=== PATIENT | female | born 1995 | race Caucasian/White ===

== ENCOUNTER 2016-10-27 19:01 | Emergency (ER) | payer BC ==
[2016-10-27] MEDS ORDERED: Sodium Chloride 0.9% 2.5 ML Syringe FLUSH PRN (19:16)
[2016-10-27] MEDS ORDERED: Sodium Chloride 0.9% 10 ML Syringe FLUSH PRN (19:16)
--- NOTE | 2016-10-27 19:17 | EDM.PDOC ---
ED HPI GENERAL MEDICAL PROBLEM - General Chief Complaint: Fever Stated Complaint: FEVER/ 25 WEEKS Time Seen by Provider: 10/27/16 19:12 Source of Information: Reports: Patient History Limitations: Reports: No Limitations - History of Present Illness INITIAL COMMENTS - FREE TEXT/NARRATIVE: HISTORY AND PHYSICAL: []20-year-old female presenting with a fever since noon today History of Present Illness: []She does 25 weeks She has taken Tylenol at 4:00 PM Review of Systems: As per history of present illness and below otherwise all systems reviewed and negative. Past medical history: As per history of present illness and as reviewed below otherwise noncontributory. Surgical history: As per history of present illness and as reviewed below otherwise noncontributory. Social history: No reported history of drug or alcohol abuse. Family history: As per history of present illness and as reviewed below otherwise noncontributory. Physical exam: Alert and oriented female speaking in full sentences with no shortness of breath. She looks nontoxic HEENT: Atraumatic, normocehpalic, pupils reactive, negative for conjunctival pallor or scleral icterus, mucous membranes moist, throat clear, neck supple, nontender, trachea midline. Lungs: Clear to auscultation, breath sounds equal bilaterally, chest non tender. Heart: S1S2, regular, negative for clicks, rubs, or JVD. Abdomen: Soft, nondistended, nontender. Negative for masses or hepatossplenmegaly. Negative for costovertebral tenderness. Pelvis: Stable nontender. Genitourinary: Deferred. Rectal: Deferred Extremities: Atraumatic, negative for cords or calf pain. Neurovascular unremarkable. Neuro: Awake, alert, oriented. Cranial nerves II through XII unremarkable. Cerebellum unremarkable. Motor and sensory unremarkable throughout. Exam nonfocal. heart tones 141. Diagnostics: [CBC UA urine culture] negative for infection Therapeutics: [] Impression: [Fever resolved] Plan: [Discharged to home Tylenol as needed for discomfort See her SUPERVISOR [employer] tomorrow Any worsening of symptoms please return for re-evaluation] Definitive disposition and diagnosis as appropriate pending reevaluation and review of above. 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 [No Known Home Meds] 10/27/16 [History] Past Medical History - Past Health History Medical/Surgical History: Denies Medical/Surgical History HEENT History: Reports: None Cardiovascular History: Reports: None Respiratory History: Reports: None Gastrointestinal History: Reports: None Genitourinary History: Reports: None SUPERVISOR [employer] History: Reports: Musculoskeletal History: Reports: None Neurological History: Reports: None Psychiatric History: Reports: None Endocrine/Metabolic History: Reports: None Hematologic History: Reports: None Dermatologic History: Reports: None - Infectious Disease History Infectious Disease History: Reports: None Social & Family History - Family History Family Medical History: Noncontributory - Tobacco Use Smoking Status *Q: Never Smoker - Recreational Drug Use Recreational Drug Use: No ED ROS ENT - Review of Systems Review Of Systems: ROS reveals no pertinent complaints other than HPI. ED EXAM, ENT - Physical Exam Exam: See Below (See dictation) Course - Vital Signs Last Recorded V/S: Last Vital Signs Temp 36.2 C 10/27/16 19:05 Pulse 97 10/27/16 19:05 Resp 14 10/27/16 19:05 BP 125/85 10/27/16 19:05 Pulse Ox 97 10/27/16 19:05 - Orders/Labs/Meds Orders: Active Orders 24 hr Category Date Time Status COMPREHENSIVE METABOLIC PN,CMP [CHEM] Stat Lab 10/27/16 19:30 Received CULTURE URINE [RM] Stat Lab 10/27/16 19:30 Received Sodium Chloride 0.9% [Saline Flush] Med 10/27/16 19:16 Active 10 ml FLUSH ASDIRECTED PRN Sodium Chloride 0.9% [Saline Flush] Med 10/27/16 19:16 Active 2.5 ml FLUSH ASDIRECTED PRN Saline Lock Insert [OM.PC] Stat Oth 10/27/16 19:16 Ordered Medication Orders Sodium Chloride (Saline Flush) 10 ml FLUSH ASDIRECTED PRN PRN Reason: Keep Vein Open Sodium Chloride (Saline Flush) 2.5 ml FLUSH ASDIRECTED PRN PRN Reason: Keep Vein Open Labs: Laboratory Tests 10/27/16 10/27/16 Range/Units 19:30 19:30 WBC 14.58 H (4.0-11.0) K/uL RBC 4.22 L (4.30-5.90) M/uL Hgb 12.7 (12.0-16.0) g/dL Hct 37.3 (36.0-46.0) % MCV 88.4 (80.0-98.0) fL MCH 30.1 (27.0-32.0) pg MCHC 34.0 (31.0-37.0) g/dL RDW Std Deviation 40.5 (28.0-62.0) fl RDW Coeff of Jl 13 (11.0-15.0) % Plt Count 216 (150-400) K/uL MPV 9.90 (7.40-12.00) fL Add Manual Diff YES Neutrophils % (Manual) 82 H (48.0-80.0) % Lymphocytes % (Manual) 14 L (16.0-40.0) % Monocytes % (Manual) 3 (0.0-15.0) % Eosinophils % (Manual) 1 (0.0-7.0) % Absolute Seg Neuts 12.0 Lymphocytes # (Manual) 2.0 Monocytes # (Manual) 0.4 Eosinophils # (Manual) 0.1 Urine Color YELLOW Urine Appearance CLEAR Urine pH 7.0 (5.0-8.0) Ur Specific [place] 1.015 (1.001-1.035) Urine Protein NEGATIVE (NEGATIVE) mg/dL Urine Glucose (UA) NEGATIVE (NEGATIVE) mg/dL Urine Ketones NEGATIVE (NEGATIVE) mg/dL Urine Occult Blood NEGATIVE (NEGATIVE) Urine Nitrite NEGATIVE (NEGATIVE) Urine Bilirubin NEGATIVE (NEGATIVE) Urine Urobilinogen 0.2 (<2.0) EU/dL Ur Leukocyte Esterase SMALL (NEGATIVE) Urine RBC 0-2 (0-2/HPF) Urine WBC 3-5 (0-5/HPF) Ur Epithelial Cells MODERATE (NONE-FEW) Urine Bacteria FEW (NEGATIVE) Meds: Medications Generic Name Dose Route Start Last Admin Trade Name Freq PRN Reason Stop Dose Admin Sodium Chloride 10 ml 10/27/16 19:16 Saline Flush FLUSH ASDIRECTED PRN Keep Vein Open Sodium Chloride 2.5 ml 10/27/16 19:16 Saline Flush FLUSH ASDIRECTED PRN Keep Vein Open Departure - Departure Time of Disposition: 20:16 Disposition: Home, Self-Care 01 Condition: Good Clinical Impression: Fever Qualifiers: Fever type: unspecified Qualified Code(s): R50.9 - Fever, unspecified - Discharge Information Referrals: Jillian Kirby MD [Primary Care Provider] - Forms: ED Department Discharge - My Orders Last 24 Hours: My Active Orders 10/27/16 19:16 Sodium Chloride 0.9% [Saline Flush] 10 ml FLUSH ASDIRECTED PRN Sodium Chloride 0.9% [Saline Flush] 2.5 ml FLUSH ASDIRECTED PRN Saline Lock Insert [OM.PC] Stat 10/27/16 19:30 COMPREHENSIVE METABOLIC PN,CMP [CHEM] Stat CULTURE URINE [RM] Stat - Assessment/Plan Last 24 Hours: My Active Orders 10/27/16 19:16 Sodium Chloride 0.9% [Saline Flush] 10 ml FLUSH ASDIRECTED PRN Sodium Chloride 0.9% [Saline Flush] 2.5 ml FLUSH ASDIRECTED PRN Saline Lock Insert [OM.PC] Stat 10/27/16 19:30 COMPREHENSIVE METABOLIC PN,CMP [CHEM] Stat CULTURE URINE [RM] Stat
[2016-10-27 20:23] LABS: CHLORIDE,CL 110 mmol/L (98-110); SODIUM,NA 138 mmol/L (136-146)
[2016-10-27 20:27] VITALS: BP 119/69
== END 2016-10-27 20:23 | disposition home or self-care (01) ==
LOC: MW.ED 19:01
DX: O99.89 Other specified diseases and conditions complicating pregnancy, childbirth and the puerperium (principal); R50.9 Fever, unspecified; Z3A.25 25 weeks gestation of pregnancy
CPT/HCPCS: 36415; 80053; 81001; 85025; 87086; 99283

== ENCOUNTER 2017-02-01 00:15 | Inpatient (IN) | payer BC ==
[2017-02-01] MEDS ORDERED: Lidocaine 1% 50 ML MDV INJECT PRN (00:26)
[2017-02-01] MEDS ORDERED: Sodium Chloride 0.9% 10 ML Syringe FLUSH PRN (00:26)
[2017-02-01] MEDS ORDERED: Misoprostol 200 MCG Tab PO PRN (00:26)
[2017-02-01] MEDS ORDERED: Terbutaline 1 MG/ML SDV SUBCUT PRN (00:26)
[2017-02-01] MEDS ORDERED: Methylergonovine 0.2 MG/1 ML Amp IM PRN (00:26)
[2017-02-01] MEDS ORDERED: Carboprost Tromethamine 250 MCG/1 ML Amp IM PRN (00:26)
[2017-02-01] MEDS ORDERED: Water For Irrigation,Sterile 1,000 ML Container IRR PRN (00:26)
[2017-02-01] MEDS ORDERED: Sodium Chloride 0.9% 2.5 ML Syringe FLUSH PRN (00:26)
[2017-02-01] MEDS ORDERED: Nalbuphine 10 MG/1 ML Vial IVPUSH PRN (00:26)
[2017-02-01] MEDS ORDERED: Oxytocin/0.9 % Sodium Chloride 30 UNIT/500 ML BAG IV SCH ×2 (00:30)
[2017-02-01] MEDS ORDERED: Misoprostol 25 MCG (1/4 of 100 MCG) Tab VAG SCH (01:00)
[2017-02-01] MEDS ORDERED: Misoprostol 25 MCG (1/4 of 100 MCG) Tab VAG PRN (05:00)
[2017-02-01] MEDS: Lactated Ringers 1,000 ML IV SCH ×3 (09:52→22:00)
[2017-02-01] MEDS: Butorphanol 1 MG/ML SDV IVPUSH PRN ×6 (11:23→20:07)
[2017-02-01] MEDS ORDERED: Ropivacaine 0.2% 2 MG/ML 20 ML SDV ONE (22:56)
[2017-02-01] MEDS ORDERED: Ropivacaine 100 ML ONE (22:56)
[2017-02-01] MEDS ORDERED: fentaNYL 100 MCG/2 ML SDV ONE (22:56)
--- NOTE | 2017-02-01 23:32 | PCM.PREANE ---
Preanesthetic Assessment - Procedure Proposed Procedure: labor epidural - Anesthesia/Transfusion/Family Hx Anesthesia History: No Prior Anesthesia Family History of Anesthesia Reaction: No Transfusion History: No Prior Transfusion(s) - Review of Systems Other: Reports: None - Physical Assessment Height: 5 ft 3 in Weight: 99.79 kg ASA Class: 2 Mental Status: Alert & Oriented x3 Airway Class: Mallampati = 1 Dentition: Reports: Normal Dentition ROM/Head Extension: Full - Lab Values: Laboratory Last Values WBC 11.02 K/uL (4.0-11.0) H 02/01/17 00:43 RBC 3.93 M/uL (4.30-5.90) L 02/01/17 00:43 Hgb 11.1 g/dL (12.0-16.0) L 02/01/17 00:43 Hct 33.3 % (36.0-46.0) L 02/01/17 00:43 MCV 84.7 fL (80.0-98.0) 02/01/17 00:43 MCH 28.2 pg (27.0-32.0) 02/01/17 00:43 MCHC 33.3 g/dL (31.0-37.0) 02/01/17 00:43 RDW Std Deviation 40.9 fl (28.0-62.0) 02/01/17 00:43 RDW Coeff of Jl 14 % (11.0-15.0) 02/01/17 00:43 Plt Count 135 K/uL (150-400) L 02/01/17 00:43 MPV 10.60 fL (7.40-12.00) 02/01/17 00:43 Blood Type A POSITIVE 02/01/17 00:43 Antibody Screen NEGATIVE 02/01/17 00:43 - Allergies Allergies/Adverse Reactions: Allergies Allergy/AdvReac Type Severity Reaction Status Date / Time No Known Allergies Allergy Verified 10/27/16 19:04 - Blood Blood Available: Yes Product(s) Available: PRBC - Acknowledgements Anesthesia Type Planned: Epidural Pt an Appropriate Candidate for the Planned Anesthesia: Yes Alternatives and Risks of Anesthesia Discussed w Pt/Guardian: Yes Pt/Guardian Understands and Agrees with Anesthesia Plan: Yes PreAnesthesia Questionnaire - Past Health History Medical/Surgical History: Denies Medical/Surgical History HEENT History: Reports: None Cardiovascular History: Reports: None Respiratory History: Reports: None Gastrointestinal History: Reports: None Genitourinary History: Reports: 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 [No Known Home Meds] 10/27/16 [History] - CURRENT (IN HOUSE) MEDS Current Meds: Current Medications Butorphanol Tartrate (Stadol) 1 mg IVPUSH Q1H PRN PRN Reason: Pain Last Admin: 02/01/17 16:41 Dose: 1 mg Butorphanol Tartrate (Stadol) 1 mg IVPUSH Q1H PRN PRN Reason: Pain (severe 7-10) Last Admin: 02/01/17 20:07 Dose: 1 mg Carboprost Tromethamine (Hemabate Ds) 250 mcg IM ASDIRECTED PRN PRN Reason: Post Hemorrhage Lactated Ringer's (Ringers, Lactated) 1,000 mls @ 150 mls/hr IV ASDIRECTED GLORIA Last Admin: 02/01/17 10:49 Dose: 150 mls/hr Oxytocin/Sodium Chloride (Oxytocin 30 Unit/500 Ml-Ns) 30 unit in 500 mls @ 250 mls/hr IV TITRATE GLORIA Oxytocin/Sodium Chloride (Oxytocin 30 Unit/500 Ml-Ns) 30 unit in 500 mls @ 2 mls/hr IV TITRATE GLORIA; 2 MUNITS/MIN PRN Reason: Protocol Last Titration: 02/01/17 20:42 Dose: 6 munits/min, 6 mls/hr Lidocaine HCl (Xylocaine 1%) 50 ml INJECT .ONCE PRN PRN Reason: Laceration repair Methylergonovine Maleate (Methergine) 0.2 mg IM ASDIRECTED PRN PRN Reason: Post Hemorrhage Misoprostol (Cytotec) 200 mcg PO .ONCE PRN PRN Reason: Post Hemorrhage Misoprostol (Cytotec) 25 mcg VAG .ONCE GLORIA Last Admin: 02/01/17 01:05 Dose: 25 mcg Misoprostol (Cytotec) 25 mcg VAG Q4H PRN PRN Reason: Cervical Ripening Last Admin: 02/01/17 05:06 Dose: 25 mcg Nalbuphine HCl (Nubain) 10 mg IVPUSH Q1H PRN PRN Reason: Pain (severe 7-10) Sodium Chloride (Saline Flush) 10 ml FLUSH ASDIRECTED PRN PRN Reason: Keep Vein Open Sodium Chloride (Saline Flush) 2.5 ml FLUSH ASDIRECTED PRN PRN Reason: Keep Vein Open Sterile Water (Sterile Water For Irrigation) 1,000 ml IRR ASDIRECTED PRN PRN Reason: delivery Terbutaline Sulfate (Brethine) 0.25 mg SUBCUT ASDIRECTED PRN PRN Reason: Tacysystole Discontinued Medications Fentanyl (Sublimaze) Confirm Administered Dose 200 mcg .ROUTE .STK-MED ONE Stop: 02/01/17 22:57 Ropivacaine (Naropin 0.2%) Confirm Administered Dose 100 mls @ as directed .ROUTE .STK-MED ONE Stop: 02/01/17 22:57 Ropivacaine (Naropin 0.2%) Confirm Administered Dose 20 ml .ROUTE .STK-MED ONE Stop: 02/01/17 22:57
[2017-02-02] MEDS: Lactated Ringers 1,000 ML IV SCH ×3 (04:47→20:06)
[2017-02-02] MEDS ORDERED: Acetaminophen 500 MG Tab PO ONE (06:46)
[2017-02-02] MEDS ORDERED: Ampicillin 2 GM in Sodium Chloride 0.9% 50 ML IV SCH (07:00)
[2017-02-02] MEDS ORDERED: fentaNYL 100 MCG/2 ML SDV ONE ×3 (09:33→11:19)
[2017-02-02] MEDS ORDERED: Bupivacaine 0.5% 10 ML SDV ONE (09:33)
[2017-02-02] MEDS ORDERED: Oxytocin/0.9 % Sodium Chloride 30 UNIT/500 ML BAG ONE (09:40)
[2017-02-02] MEDS ORDERED: Clindamycin Phosphate in D5W 50 ML IV ONE (09:41)
[2017-02-02] MEDS ORDERED: Morphine PF 10 MG/10 ML SDV ONE (10:07)
[2017-02-02] MEDS ORDERED: Ondansetron 4 MG/2 ML SDV ONE (10:30)
[2017-02-02] MEDS ORDERED: Methylergonovine 0.2 MG/1 ML Amp ONE (10:35)
[2017-02-02] MEDS ORDERED: Nalbuphine 10 MG/1 ML Vial IVPUSH PRN (10:43)
[2017-02-02] MEDS ORDERED: Naloxone 0.4 MG/ML Syringe IVPUSH PRN (10:43)
[2017-02-02] MEDS ORDERED: Acetaminophen/oxyCODONE 325-5 MG Tab PO PRN ×5 (10:43→14:18)
--- NOTE | 2017-02-02 11:57 | PCM.OPNOTE ---
- General Post-Op/Procedure Note Date of Surgery/Procedure: 02/02/17 Operative Procedure(s): Primary Lower transverse Cesearean section Findings: Live male delivered @ 1029am weight 3580g , 8/9 , 3VC , Vertex position Uterus closed in 2 layers peritoneum closed , rectus approximated Skin closed with 4.0 monocryl Pre Op Diagnosis: 21 @ 39w2d with Failed IOL. Cat 2 FHT. chorioamnionitis Post-Op Diagnosis: Same Anesthesia Technique: Epidural Primary Surgeon: Jillian Kirby Anesthesia Provider: Candido Krause Pathology: Placenta Fluid Replacement, Intraop: 1,700 Output, Urine Amount: 255 EBL in mLs: 800 Complications: None Condition: Good Free Text/Narrative:: Intake & Output 02/01/17 02/02/17 02/02/17 22:59 06:59 14:59 Output Total 1600 Balance -1600
[2017-02-02] MEDS ORDERED: Lactated Ringers 1,000 ML IV SCH (12:00)
[2017-02-02] MEDS ORDERED: Ondansetron 4 MG/2 ML SDV IV PRN (12:00)
[2017-02-02] MEDS ORDERED: Lanolin 100% Cream 7 GM Tube TOP PRN (12:00)
[2017-02-02] MEDS ORDERED: Bisacodyl 10 MG Supp RECTAL PRN (12:00)
[2017-02-02] MEDS ORDERED: diphenhydrAMINE 50 MG/ML SDV IVPUSH PRN (12:00)
[2017-02-02] MEDS ORDERED: Ketorolac 30 MG/ML SDV ONE (12:09)
[2017-02-02] MEDS: Ketorolac 30 MG/ML SDV IVPUSH SCH ×3 (12:12→23:49)
--- NOTE | 2017-02-02 12:13 | PCM.POSTAN ---
POST ANESTHESIA ASSESSMENT - MENTAL STATUS Mental Status: Alert, Oriented - VITAL SIGNS Pulse Rate: 88 SaO2: 97 Resp Rate: 10 Blood Pressure: 102/58 - RESPIRATORY Respiratory Status: Respiratory Rate WNL, Airway Patent, O2 Saturation Stable - CARDIOVASCULAR CV Status: Pulse Rate WNL, Blood Pressure Stable - GASTROINTESTINAL GI Status: No Symptoms - PAIN Pain Score: 0 - POST OP HYDRATION Hydration Status: Adequate & Stable
[2017-02-02] MEDS ORDERED: Ampicillin/Sulbactam Na 3 GM in Sodium Chloride 0.9% 100 ML IV SCH (12:15)
[2017-02-02] MEDS: Ampicillin/Sulbactam Na 3 GM in Sodium Chloride 0.9% 100 ML IV SCH ×2 (14:03→20:07)
[2017-02-02] MEDS: Nalbuphine 10 MG/1 ML Vial IVPUSH PRN (16:29)
[2017-02-02] MEDS: Docusate Sodium 100 MG Cap PO SCH (20:07)
[2017-02-03] MEDS: Nalbuphine 10 MG/1 ML Vial IVPUSH PRN (00:58)
[2017-02-03] MEDS: Ampicillin/Sulbactam Na 3 GM in Sodium Chloride 0.9% 100 ML IV SCH ×2 (02:03→07:54)
[2017-02-03] MEDS: Ketorolac 30 MG/ML SDV IVPUSH SCH ×2 (06:04→12:01)
[2017-02-03 06:14] LABS: CHLORIDE,CL 109 mmol/L (98-110); SODIUM,NA 139 mmol/L (136-146)
[2017-02-03] MEDS: Docusate Sodium 100 MG Cap PO SCH ×2 (07:59→20:00)
[2017-02-03] MEDS ORDERED: Acetaminophen/oxyCODONE 325-5 MG Tab PO PRN (10:46)
--- NOTE | 2017-02-03 15:34 | PCM48HPAN ---
Post Anesthesia Note - EVALUATION WITHIN 48HRS OF ANESTHETIC Vital Signs in Normal Range: Yes Patient Participated in Evaluation: Yes Respiratory Function Stable: Yes Airway Patent: Yes Cardiovascular Function Stable: Yes Hydration Status Stable: Yes Pain Control Satisfactory: Yes Nausea and Vomiting Control Satisfactory: Yes Mental Status Recovered: Yes
[2017-02-03] MEDS: Acetaminophen/oxyCODONE 325-5 MG Tab PO PRN ×2 (17:32→22:24)
[2017-02-03] MEDS: Ibuprofen 800 MG Tab PO PRN (17:32)
--- NOTE | 2017-02-03 19:58 | PCM.PNPP ---
- General Info Date of Service: 02/03/17 Admission Dx/Problem (Free Text): 21yo S/P Primary LTCS POD 1 Subjective Update: Patient seen at complains she is ambulating ,voiding and tolerating regular diet Functional Status: Reports: Pain Controlled, Tolerating Diet, Ambulating, Urinating - Review of Systems General: Reports: No Symptoms HEENT: Reports: No Symptoms Pulmonary: Reports: No Symptoms Cardiovascular: Reports: No Symptoms Gastrointestinal: Reports: No Symptoms Genitourinary: Reports: No Symptoms Musculoskeletal: Reports: No Symptoms Skin: Reports: No Symptoms Neurological: Reports: No Symptoms Psychiatric: Reports: No Symptoms - General Info Date of Service: 02/03/17 - Patient Data Vital Signs - Most Recent: Last Vital Signs Temp 36.6 C 02/03/17 16:25 Pulse 103 H 02/03/17 16:25 Resp 18 02/03/17 16:25 BP 116/59 L 02/03/17 16:25 Pulse Ox 99 02/03/17 16:25 Weight - Most Recent: 99.79 kg I&O - Last 24 Hours: Intake & Output 02/03/17 02/03/17 02/03/17 06:59 14:59 22:59 Intake Total 1170 Output Total 1075 550 Balance 95 -550 Lab Results - Last 24 Hours: Laboratory Results - last 24 hr 02/03/17 02/03/17 Range/Units 05:34 05:34 Hgb 8.4 L (12.0-16.0) g/dL Hct 25.9 L (36.0-46.0) % Sodium 139 (136-146) mmol/L Potassium 3.5 (3.5-5.1) mmol/L Chloride 109 (98-110) mmol/L Carbon Dioxide 24 (21-31) mmol/L BUN 5 L (6.0-23.0) mg/dL Creatinine 0.5 L (0.6-1.5) mg/dL Est Cr Clr Drug Dosing 144.76 mL/min Estimated GFR (MDRD) > 60.0 ml/min Glucose 70 (60-110) mg/dL Calcium 7.4 L (8.8-10.8) mg/dL Med Orders - Current: Current Medications Bisacodyl (Dulcolax) 10 mg RECTAL .ONCE PRN PRN Reason: Constipation Carboprost Tromethamine (Hemabate Ds) 250 mcg IM ASDIRECTED PRN PRN Reason: Post Hemorrhage Diphenhydramine HCl (Benadryl) 25 mg IVPUSH Q6H PRN PRN Reason: Itching or Nausea Docusate Sodium (Colace) 100 mg PO BID GLORIA Last Admin: 02/03/17 07:59 Dose: 100 mg Emollient Ointment (Lansinoh Hpa) 0 gm TOP ASDIRECTED PRN PRN Reason: Sore Nipples Lactated Ringer's (Ringers, Lactated) 1,000 mls @ 150 mls/hr IV ASDIRECTED GLORIA Last Admin: 02/02/17 20:06 Dose: 150 mls/hr Oxytocin/Sodium Chloride (Oxytocin 30 Unit/500 Ml-Ns) 30 unit in 500 mls @ 250 mls/hr IV TITRATE GLORIA Oxytocin/Sodium Chloride (Oxytocin 30 Unit/500 Ml-Ns) 30 unit in 500 mls @ 2 mls/hr IV TITRATE GLORIA; 2 MUNITS/MIN PRN Reason: Protocol Last Titration: 02/02/17 09:39 Dose: 0 munits/min, 0 mls/hr Lactated Ringer's (Ringers, Lactated) 1,000 mls @ 125 mls/hr IV ASDIRECTED [facility] Ibuprofen (Motrin) 800 mg PO Q8H PRN PRN Reason: mild pain or fever Last Admin: 02/03/17 17:32 Dose: 800 mg Lidocaine HCl (Xylocaine 1%) 50 ml INJECT .ONCE PRN PRN Reason: Laceration repair Methylergonovine Maleate (Methergine) 0.2 mg IM ASDIRECTED PRN PRN Reason: Post Hemorrhage Misoprostol (Cytotec) 200 mcg PO .ONCE PRN PRN Reason: Post Hemorrhage Ondansetron HCl (Zofran) 4 mg IV Q4H PRN PRN Reason: Nausea/Vomiting Oxycodone/Acetaminophen (Percocet 325-5 Mg) 1 tab PO Q4H PRN PRN Reason: Pain (moderate 4-6) Last Admin: 02/03/17 17:32 Dose: 1 tab Oxycodone/Acetaminophen (Percocet 325-5 Mg) 2 tab PO Q4H PRN PRN Reason: Pain (moderate 4-6) Sterile Water (Sterile Water For Irrigation) 1,000 ml IRR ASDIRECTED PRN PRN Reason: delivery Discontinued Medications Acetaminophen (Tylenol Extra Strength) 1,000 mg PO ONETIME ONE Stop: 02/02/17 06:47 Last Admin: 02/02/17 07:31 Dose: 1,000 mg Bupivacaine HCl (Sensorcaine-Mpf 0.5%) Confirm Administered Dose 20 ml .ROUTE .STK-MED ONE Stop: 02/02/17 09:34 Last Admin: 02/02/17 12:53 Dose: Not Given Butorphanol Tartrate (Stadol) 1 mg IVPUSH Q1H PRN PRN Reason: Pain Last Admin: 02/01/17 16:41 Dose: 1 mg Butorphanol Tartrate (Stadol) 1 mg IVPUSH Q1H PRN PRN Reason: Pain (severe 7-10) Last Admin: 02/01/17 20:07 Dose: 1 mg Fentanyl (Sublimaze) Confirm Administered Dose 200 mcg .ROUTE .STK-MED ONE Stop: 02/01/17 22:57 Last Admin: 02/02/17 12:53 Dose: Not Given Fentanyl (Sublimaze) Confirm Administered Dose 100 mcg .ROUTE .STK-MED ONE Stop: 02/02/17 09:34 Last Admin: 02/02/17 12:53 Dose: Not Given Fentanyl (Sublimaze) Confirm Administered Dose 100 mcg .ROUTE .STK-MED ONE Stop: 02/02/17 10:58 Fentanyl (Sublimaze) Confirm Administered Dose 100 mcg .ROUTE .STK-MED ONE Stop: 02/02/17 11:20 Ropivacaine (Naropin 0.2%) Confirm Administered Dose 100 mls @ as directed .ROUTE .STK-MED ONE Stop: 02/01/17 22:57 Last Admin: 02/02/17 12:55 Dose: Not Given Ampicillin Sodium 2 gm/ Sodium (Chloride) 50 mls @ 100 mls/hr IV Q6H GLORIA Last Admin: 02/02/17 07:33 Dose: 100 mls/hr Gentamicin Sulfate 100 mg/ (Sodium Chloride) 52.5 mls @ 100 mls/hr IV ONETIME ONE Stop: 02/02/17 07:18 Last Admin: 02/02/17 08:29 Dose: 100 mls/hr Gentamicin Sulfate 80 mg/ (Sodium Chloride) 52 mls @ 100 mls/hr IV Q8H [facility] Oxytocin/Sodium Chloride (Oxytocin 30 Unit/500 Ml-Ns) Confirm Administered Dose 30 unit in 500 mls @ as directed .ROUTE .STK-MED ONE Stop: 02/02/17 09:41 Last Admin: 02/02/17 13:06 Dose: Not Given Clindamycin Phosphate (Cleocin In D5w) Confirm Administered Dose 50 mls @ as directed IV .STK-MED ONE Stop: 02/02/17 09:42 Last Admin: 02/02/17 13:04 Dose: Not Given Ampicillin Sodium/Sulbactam (Sodium 3 gm/ Sodium Chloride) 100 mls @ 200 mls/ hr IV Q6H [facility] Last Admin: 02/02/17 13:03 Dose: Not Given Ampicillin Sodium/Sulbactam (Sodium 3 gm/ Sodium Chloride) 100 mls @ 200 mls/ hr IV Q6H [facility] Last Admin: 02/03/17 07:54 Dose: 200 mls/hr Ketorolac Tromethamine (Toradol) 30 mg IVPUSH Q6H [facility] Stop: 02/03/17 12:01 Last Admin: 02/03/17 12:01 Dose: 30 mg Ketorolac Tromethamine (Toradol) Confirm Administered Dose 30 mg .ROUTE .STK- MED ONE Stop: 02/02/17 12:10 Last Admin: 02/02/17 12:54 Dose: Not Given Methylergonovine Maleate (Methergine) Confirm Administered Dose 0.2 mg .ROUTE .STK-MED ONE Stop: 02/02/17 10:36 Misoprostol (Cytotec) 25 mcg VAG .ONCE GLORIA Last Admin: 02/01/17 01:05 Dose: 25 mcg Misoprostol (Cytotec) 25 mcg VAG Q4H PRN PRN Reason: Cervical Ripening Last Admin: 02/01/17 05:06 Dose: 25 mcg Morphine Sulfate (Duramorph Pf) Confirm Administered Dose 10 mg .ROUTE .STK-MED ONE Stop: 02/02/17 10:08 Nalbuphine HCl (Nubain) 10 mg IVPUSH Q1H PRN PRN Reason: Pain (severe 7-10) Nalbuphine HCl (Nubain) 2.5 mg IVPUSH Q3H PRN PRN Reason: Pruritis Stop: 02/03/17 10:44 Nalbuphine HCl (Nubain) 2.5 mg IVPUSH Q3H PRN PRN Reason: Pruritis Stop: 02/03/17 12:10 Last Admin: 02/03/17 00:58 Dose: 2.5 mg Naloxone HCl (Narcan) 0.1 mg IVPUSH ONETIME PRN PRN Reason: IF RR<6 WITH STIMULATION Stop: 02/03/17 10:44 Ondansetron HCl (Zofran) Confirm Administered Dose 4 mg .ROUTE .STK-MED ONE Stop: 02/02/17 10:31 Oxycodone/Acetaminophen (Percocet 325-5 Mg) 1 tab PO .Q4HR PRN PRN Reason: Breakthrough Pain Stop: 02/03/17 10:45 Oxycodone/Acetaminophen (Percocet 325-5 Mg) 1 tab PO Q4H PRN PRN Reason: Pain (moderate 4-6) Oxycodone/Acetaminophen (Percocet 325-5 Mg) 2 tab PO Q4H PRN PRN Reason: Pain (moderate 4-6) Oxycodone/Acetaminophen (Percocet 325-5 Mg) 1 tab PO .Q4HRS PRN PRN Reason: Breakthrough Pain Stop: 02/02/17 14:08 Oxycodone/Acetaminophen (Percocet 325-5 Mg) 1 tab PO .Q4HRS PRN PRN Reason: Breakthrough Pain Stop: 02/03/17 10:45 Ropivacaine (Naropin 0.2%) Confirm Administered Dose 20 ml .ROUTE .STK-MED ONE Stop: 02/01/17 22:57 Last Admin: 02/02/17 12:53 Dose: Not Given Sodium Chloride (Saline Flush) 10 ml FLUSH ASDIRECTED PRN PRN Reason: Keep Vein Open Sodium Chloride (Saline Flush) 2.5 ml FLUSH ASDIRECTED PRN PRN Reason: Keep Vein Open Terbutaline Sulfate (Brethine) 0.25 mg SUBCUT ASDIRECTED PRN PRN Reason: Tacysystole - Infant Interaction Support Person: - Recovery Exam Fundal Tone: Firm Fundal Level: 1 Fingerbreadths Below Umbilicus Fundal Placement: Midline Lochia Amount: Scant Lochia Color: Rubra/Red Perineum Description: Intact, Minimal Bruising/Swelling Episiotomy/Laceration: None Bladder Status: Indwelling Catheter in Place Urinary Elimination: Indwelling Catheter - Exam General: Alert, Oriented HEENT: Pupils Equal Lungs: Clear to Auscultation Cardiovascular: Regular Rate, Regular Rhythm GI/Abdominal Exam: Normal Bowel Sounds (Pfannestiel skin incision with steristrips in place c/d/i ) Extremities: Normal Inspection Psy/Mental Status: Alert - Problem List & Annotations (1) delivery delivered SNOMED Code(s): 663099139 Code(s): O82 - ENCOUNTER FOR DELIVERY WITHOUT INDICATION Status: Acute Current Visit: Yes - Problem List Review Problem List Initiated/Reviewed/Updated: Yes - My Orders Last 24 Hours: My Active Orders 02/02/17 21:00 Docusate Sodium [Colace] 100 mg PO BID 02/03/17 10:46 Acetaminophen/oxyCODONE [Percocet 325-5 MG] 1 tab PO Q4H PRN Acetaminophen/oxyCODONE [Percocet 325-5 MG] 2 tab PO Q4H PRN - Assessment Assessment:: 21 yo s/p Primary LTCS POD 1 ,stable , normal lochia - Plan Plan:: Pain control as needed encourage ambulation vitamins and Iron Routine care
--- NOTE | 2017-02-04 00:35 | OR ---
DATE OF PROCEDURE: 02/02/2017 SURGEON:GIOVANNY BLACK PREOPERATOVE DIAGNOSIS: A 21-year-old, G1, P0, at 39 weeks 2 days with failed induction of labor, category 2 heart tracing, chorioamnionitis. POSTOPERATIVE DIAGNOSIS: Status post primary for failed induction of labor, category 2 tracing and chorioamnionitis. ANESTHESIA: Epidural. IV FLUID: 1700. OUTPUT: 255. EBL: 800. PATHOLOGY: Placenta. FINDING: A live male delivered at 10:29 a.m. Weight was 3580 g. score of 8 and 9. Three-vessel cord noted. BRIEF HISTORY: She was a 21-year-old, G1, P0, at 39w1d ( d,24) based on maternal request. Cervix on admission was FT/L/P . The patient received 2 doses of Cytotec after which she became about 1 cm. A baca balloon was placed under traction. After this 5, then AROM performed 2, then she was ruptured.Pitocin was started with CRB in place. The patient was on Pitocin for about 12 hours and exam remained unchanged, and the patient had adequate contractions noted on the monitor. EFM showed occasional late decelerations. Patient also noted to have a temp 100.8 , she was placed on Amp and gentamicin. The patient was offered of section for maternal and well being. She was explained risk benefit and alternative, she was allowed to ask question and she then signed the consent. PROCEDURE: The patient was taken to the operating room,with epidural in place . She was prepared and draped in dorsal supine position with a leftward tilt. A Pfannenstiel skin incision was made with the scalpel and carried down to the fascia with the Bovie. The fascia was incised and extended laterally. The superior fascia was grasped with Michael clamps and from the rectus muscles superiorly., then inferiorly the rectus muscle was from the fascia. The rectus muscle was then in the midline to the level of the pubic symphysis. The abdomen was then entered in bluntly and the peritoneum was then stretched to expose the bladder reflection. An intraabdominal survey showed scant fluid. Bladder reflection was noted. The Dontae retractor was then placed in to expose the lower uterine segment. A bladder flap was created. An incision was then made in the lower uterine segment. The incision was extended upwards and downwards via manual traction. The fetus was in cephalic position. The head was brought to the incision, then fundal pressure applied. The head was delivered followed by the body . Delayed cord clamping was observed. The cord was clamped and cut and the infant was handed over to the awaiting english teacher. The placenta was then delivered. The uterus was then cleaned with laparotomy sponges. The uterus was sutured in 2 layers and hemostasis was noted afterwards. The gutters were cleaned. The retractor was then removed. The peritoneal was sutured. The rectus muscle was then closed with mattress stitch. The fascia was closed with 0 Vicryl in a continuous fashion. The skin was closed with 4-0 Monocryl on a Bobo needle. The instrument and pad count were correct x2. The patient was taken to recovery room in stable condition. MARIAN PATEL /[id number] MALCOLM
[2017-02-04] MEDS: Acetaminophen/oxyCODONE 325-5 MG Tab PO PRN (03:20)
[2017-02-04] MEDS: Ibuprofen 800 MG Tab PO PRN (03:20)
[2017-02-04] MEDS: Docusate Sodium 100 MG Cap PO SCH (07:32)
--- NOTE | 2017-02-04 08:30 | PCM.PNPP ---
- General Info Date of Service: 02/04/17 Admission Dx/Problem (Free Text): 21yo S/P Primary LTCS POD 2 Subjective Update: Patient [facility] at [facility] she is ambulating ,voiding and tolerating regular diet Functional Status: Reports: Pain Controlled, Tolerating Diet, Ambulating, Urinating - Review of Systems General: Reports: No Symptoms HEENT: Reports: No Symptoms Pulmonary: Reports: No Symptoms Cardiovascular: Reports: No Symptoms Gastrointestinal: Reports: No Symptoms Genitourinary: Reports: No Symptoms Musculoskeletal: Reports: No Symptoms Skin: Reports: No Symptoms Neurological: Reports: No Symptoms Psychiatric: Reports: No Symptoms - General Info Date of Service: 02/04/17 - Patient Data Vital Signs - Most Recent: Last Vital Signs Temp 36.4 C 02/04/17 03:00 Pulse 101 H 02/04/17 03:00 Resp 16 02/04/17 03:00 BP 119/62 02/04/17 03:00 Pulse Ox 98 02/04/17 03:00 Weight - Most Recent: 99.79 kg Med Orders - Current: Current Medications Bisacodyl (Dulcolax) 10 mg RECTAL .ONCE PRN PRN Reason: Constipation Carboprost Tromethamine (Hemabate Ds) 250 mcg IM ASDIRECTED PRN PRN Reason: Post Hemorrhage Diphenhydramine HCl (Benadryl) 25 mg IVPUSH Q6H PRN PRN Reason: Itching or Nausea Docusate Sodium (Colace) 100 mg PO BID GLORIA Last Admin: 02/04/17 07:32 Dose: 100 mg Emollient Ointment (Lansinoh Hpa) 0 gm TOP ASDIRECTED PRN PRN Reason: Sore Nipples Last Admin: 02/03/17 20:00 Dose: 7 gm Lactated Ringer's (Ringers, Lactated) 1,000 mls @ 150 mls/hr IV ASDIRECTED GLORIA Last Admin: 02/02/17 20:06 Dose: 150 mls/hr Oxytocin/Sodium Chloride (Oxytocin 30 Unit/500 Ml-Ns) 30 unit in 500 mls @ 250 mls/hr IV TITRATE GLORIA Oxytocin/Sodium Chloride (Oxytocin 30 Unit/500 Ml-Ns) 30 unit in 500 mls @ 2 mls/hr IV TITRATE GLORIA; 2 MUNITS/MIN PRN Reason: Protocol Last Titration: 02/02/17 09:39 Dose: 0 munits/min, 0 mls/hr Lactated Ringer's (Ringers, Lactated) 1,000 mls @ 125 mls/hr IV ASDIRECTED GLORIA Ibuprofen (Motrin) 800 mg PO Q8H PRN PRN Reason: mild pain or fever Last Admin: 02/04/17 03:20 Dose: 800 mg Lidocaine HCl (Xylocaine 1%) 50 ml INJECT .ONCE PRN PRN Reason: Laceration repair Methylergonovine Maleate (Methergine) 0.2 mg IM ASDIRECTED PRN PRN Reason: Post Hemorrhage Misoprostol (Cytotec) 200 mcg PO .ONCE PRN PRN Reason: Post Hemorrhage Ondansetron HCl (Zofran) 4 mg IV Q4H PRN PRN Reason: Nausea/Vomiting Oxycodone/Acetaminophen (Percocet 325-5 Mg) 1 tab PO Q4H PRN PRN Reason: Pain (moderate 4-6) Last Admin: 02/04/17 03:20 Dose: 1 tab Oxycodone/Acetaminophen (Percocet 325-5 Mg) 2 tab PO Q4H PRN PRN Reason: Pain (moderate 4-6) Last Admin: 02/04/17 07:32 Dose: 2 tab Sterile Water (Sterile Water For Irrigation) 1,000 ml IRR ASDIRECTED PRN PRN Reason: delivery Discontinued Medications Acetaminophen (Tylenol Extra Strength) 1,000 mg PO ONETIME ONE Stop: 02/02/17 06:47 Last Admin: 02/02/17 07:31 Dose: 1,000 mg Bupivacaine HCl (Sensorcaine-Mpf 0.5%) Confirm Administered Dose 20 ml .ROUTE .STK-MED ONE Stop: 02/02/17 09:34 Last Admin: 02/02/17 12:53 Dose: Not Given Butorphanol Tartrate (Stadol) 1 mg IVPUSH Q1H PRN PRN Reason: Pain Last Admin: 02/01/17 16:41 Dose: 1 mg Butorphanol Tartrate (Stadol) 1 mg IVPUSH Q1H PRN PRN Reason: Pain (severe 7-10) Last Admin: 02/01/17 20:07 Dose: 1 mg Fentanyl (Sublimaze) Confirm Administered Dose 200 mcg .ROUTE .STK-MED ONE Stop: 02/01/17 22:57 Last Admin: 02/02/17 12:53 Dose: Not Given Fentanyl (Sublimaze) Confirm Administered Dose 100 mcg .ROUTE .STK-MED ONE Stop: 02/02/17 09:34 Last Admin: 02/02/17 12:53 Dose: Not Given Fentanyl (Sublimaze) Confirm Administered Dose 100 mcg .ROUTE .STK-MED ONE Stop: 02/02/17 10:58 Fentanyl (Sublimaze) Confirm Administered Dose 100 mcg .ROUTE .STK-MED ONE Stop: 02/02/17 11:20 Ropivacaine (Naropin 0.2%) Confirm Administered Dose 100 mls @ as directed .ROUTE .STK-MED ONE Stop: 02/01/17 22:57 Last Admin: 02/02/17 12:55 Dose: Not Given Ampicillin Sodium 2 gm/ Sodium (Chloride) 50 mls @ 100 mls/hr IV Q6H [facility] Last Admin: 02/02/17 07:33 Dose: 100 mls/hr Gentamicin Sulfate 100 mg/ (Sodium Chloride) 52.5 mls @ 100 mls/hr IV ONETIME ONE Stop: 02/02/17 07:18 Last Admin: 02/02/17 08:29 Dose: 100 mls/hr Gentamicin Sulfate 80 mg/ (Sodium Chloride) 52 mls @ 100 mls/hr IV Q8H [facility] Oxytocin/Sodium Chloride (Oxytocin 30 Unit/500 Ml-Ns) Confirm Administered Dose 30 unit in 500 mls @ as directed .ROUTE .STK-MED ONE Stop: 02/02/17 09:41 Last Admin: 02/02/17 13:06 Dose: Not Given Clindamycin Phosphate (Cleocin In D5w) Confirm Administered Dose 50 mls @ as directed IV .STK-MED ONE Stop: 02/02/17 09:42 Last Admin: 02/02/17 13:04 Dose: Not Given Ampicillin Sodium/Sulbactam (Sodium 3 gm/ Sodium Chloride) 100 mls @ 200 mls/ hr IV Q6H [facility] Last Admin: 02/02/17 13:03 Dose: Not Given Ampicillin Sodium/Sulbactam (Sodium 3 gm/ Sodium Chloride) 100 mls @ 200 mls/ hr IV Q6H [facility] Last Admin: 02/03/17 07:54 Dose: 200 mls/hr Ketorolac Tromethamine (Toradol) 30 mg IVPUSH Q6H GLORIA Stop: 02/03/17 12:01 Last Admin: 02/03/17 12:01 Dose: 30 mg Ketorolac Tromethamine (Toradol) Confirm Administered Dose 30 mg .ROUTE .STK- MED ONE Stop: 02/02/17 12:10 Last Admin: 02/02/17 12:54 Dose: Not Given Methylergonovine Maleate (Methergine) Confirm Administered Dose 0.2 mg .ROUTE .STK-MED ONE Stop: 02/02/17 10:36 Misoprostol (Cytotec) 25 mcg VAG .ONCE GLORIA Last Admin: 02/01/17 01:05 Dose: 25 mcg Misoprostol (Cytotec) 25 mcg VAG Q4H PRN PRN Reason: Cervical Ripening Last Admin: 02/01/17 05:06 Dose: 25 mcg Morphine Sulfate (Duramorph Pf) Confirm Administered Dose 10 mg .ROUTE .STK-MED ONE Stop: 02/02/17 10:08 Nalbuphine HCl (Nubain) 10 mg IVPUSH Q1H PRN PRN Reason: Pain (severe 7-10) Nalbuphine HCl (Nubain) 2.5 mg IVPUSH Q3H PRN PRN Reason: Pruritis Stop: 02/03/17 10:44 Nalbuphine HCl (Nubain) 2.5 mg IVPUSH Q3H PRN PRN Reason: Pruritis Stop: 02/03/17 12:10 Last Admin: 02/03/17 00:58 Dose: 2.5 mg Naloxone HCl (Narcan) 0.1 mg IVPUSH ONETIME PRN PRN Reason: IF RR<6 WITH STIMULATION Stop: 02/03/17 10:44 Ondansetron HCl (Zofran) Confirm Administered Dose 4 mg .ROUTE .STK-MED ONE Stop: 02/02/17 10:31 Oxycodone/Acetaminophen (Percocet 325-5 Mg) 1 tab PO .Q4HR PRN PRN Reason: Breakthrough Pain Stop: 02/03/17 10:45 Oxycodone/Acetaminophen (Percocet 325-5 Mg) 1 tab PO Q4H PRN PRN Reason: Pain (moderate 4-6) Oxycodone/Acetaminophen (Percocet 325-5 Mg) 2 tab PO Q4H PRN PRN Reason: Pain (moderate 4-6) Oxycodone/Acetaminophen (Percocet 325-5 Mg) 1 tab PO .Q4HRS PRN PRN Reason: Breakthrough Pain Stop: 02/02/17 14:08 Oxycodone/Acetaminophen (Percocet 325-5 Mg) 1 tab PO .Q4HRS PRN PRN Reason: Breakthrough Pain Stop: 02/03/17 10:45 Ropivacaine (Naropin 0.2%) Confirm Administered Dose 20 ml .ROUTE .STK-MED ONE Stop: 02/01/17 22:57 Last Admin: 02/02/17 12:53 Dose: Not Given Sodium Chloride (Saline Flush) 10 ml FLUSH ASDIRECTED PRN PRN Reason: Keep Vein Open Sodium Chloride (Saline Flush) 2.5 ml FLUSH ASDIRECTED PRN PRN Reason: Keep Vein Open Terbutaline Sulfate (Brethine) 0.25 mg SUBCUT ASDIRECTED PRN PRN Reason: Tacysystole - Infant Interaction Support Person: - Recovery Exam Fundal Tone: Firm Fundal Level: 1 Fingerbreadths Below Umbilicus Fundal Placement: Midline Lochia Amount: Scant Lochia Color: Rubra/Red Perineum Description: Intact, Minimal Bruising/Swelling Episiotomy/Laceration: None Bladder Status: Voiding Urinary Elimination: Indwelling Catheter - Exam General: Alert, Oriented Neck: Supple Lungs: Clear to Auscultation Cardiovascular: Regular Rate, Regular Rhythm GI/Abdominal Exam: Normal Bowel Sounds (Pfannestiel skin incision with steristrips in place c/d/i ) Extremities: Normal Inspection Skin: Warm Psy/Mental Status: Alert - Problem List & Annotations (1) delivery delivered SNOMED Code(s): 206157268 Code(s): O82 - ENCOUNTER FOR DELIVERY WITHOUT INDICATION Status: Acute Current Visit: Yes - Problem List Review Problem List Initiated/Reviewed/Updated: Yes - My Orders Last 24 Hours: My Active Orders 02/03/17 10:46 Acetaminophen/oxyCODONE [Percocet 325-5 MG] 1 tab PO Q4H PRN Acetaminophen/oxyCODONE [Percocet 325-5 MG] 2 tab PO Q4H PRN - Assessment Assessment:: 21 yo s/p Primary LTCS POD 2 ,stable , normal lochia - Plan Plan:: Discharge home today
[2017-02-04 11:40] VITALS: BP 115/95
== END 2017-02-04 09:55 | disposition home or self-care (01) | DRG 540 ==
LOC: MW.OBCHECK 00:15 → MW.OB 00:17 → MW.OBCHECK 00:26 → OBSVTOIN 02-02 12:00 → MW.OB 02-02 12:58
PROVIDERS: ADMIT Obstetrics & Gynecology; ATTEND Obstetrics & Gynecology
PROC: 10D00Z1 Extraction of Products of Conception, Low, Open Approach (ICD-10-PCS; principal; 2017-02-02)
PROC: 3E0P7VZ Introduction of Hormone into Female Reproductive, Via Natural or Artificial Opening (ICD-10-PCS; 2017-02-02)
PROC: 3E033VJ Introduction of Other Hormone into Peripheral Vein, Percutaneous Approach (ICD-10-PCS; 2017-02-02)
PROC: 10907ZC Drainage of Amniotic Fluid, Therapeutic from Products of Conception, Via Natural or Artificial Opening (ICD-10-PCS; 2017-02-02)
DX: O61.0 Failed medical induction of labor (principal); O76 Abnormality in fetal heart rate and rhythm complicating labor and delivery; O41.1230 Chorioamnionitis, third trimester, not applicable or unspecified; Z3A.39 39 weeks gestation of pregnancy; Z37.0 Single live birth
CPT/HCPCS: 01967; 01968; 36415; 51702; 59025; 80048; 85014; 85018; 85027; 86850; 86900; 86901; 88307; A9270-GY; J0290; J0295; J0595; J1580; J1885; J2210; J2270; J2300; J2405; J2590; J3010; J7030; J7050; J7120

== ENCOUNTER 2017-02-06 11:32 | Emergency (ER) | payer BC ==
--- NOTE | 2017-02-06 12:15 | EDM.PDOC ---
ED HPI GENERAL MEDICAL PROBLEM - General Chief Complaint: Skin Complaint Stated Complaint: POSSIBLE HIVES AROUND STOMATCH Time Seen by Provider: 02/06/17 12:12 Source of Information: Reports: Patient History Limitations: Reports: No Limitations - History of Present Illness INITIAL COMMENTS - FREE TEXT/NARRATIVE: History of present illness: [21-year-old male comes in complaining of diffuse rash over her back as well as coming around her abdomen.] Review of systems: As per history of present illness and below otherwise all systems reviewed and negative. Past medical history: As per history of present illness and as reviewed below otherwise noncontributory. Surgical history: As per history of present illness and as reviewed below otherwise noncontributory. Social history: No reported history of drug or alcohol abuse. Family history: As per history of present illness and as reviewed below otherwise noncontributory. Physical exam: HEENT: Atraumatic, normocephalic, pupils reactive, negative for conjunctival pallor or scleral icterus, mucous membranes moist, throat clear, neck supple, nontender, trachea midline. Lungs: Clear to auscultation, breath sounds equal bilaterally, chest nontender. Heart: S1S2, regular, negative for clicks, rubs, or JVD. Abdomen: Soft, nondistended, nontender. Negative for masses or hepatosplenomegaly. Negative for costovertebral tenderness. Pelvis: Stable nontender. Genitourinary: Deferred. Rectal: Deferred. Extremities: Atraumatic, negative for cords or calf pain. Neurovascular unremarkable. Neuro: Awake, alert, oriented. Cranial nerves II through XII unremarkable. Cerebellum unremarkable. Motor and sensory unremarkable throughout. Exam nonfocal. Skin: Diffuse plaque a rash across buttocks and radiating around to the abdomen Diagnostics: [] Therapeutics: [] Impression: [#1 allergic dermatitis secondary to med reaction] Plan: [Discontinue Percocet, tramadol, Benadryl] Definitive disposition and diagnosis as appropriate pending reevaluation and review of above. Lower Abdominal incision pain Pain Score (Numeric/FACES): 4 - Related Data Allergies Allergy/AdvReac Type Severity Reaction Status Date / Time No Known Allergies Allergy Verified 02/06/17 11:39 Home Meds: Home Meds . [No Known Home Meds] 10/27/16 [History] Past Medical History - Past Health History Medical/Surgical History: Denies Medical/Surgical History HEENT History: Reports: None Cardiovascular History: Reports: None Respiratory History: Reports: None Gastrointestinal History: Reports: None Genitourinary History: Reports: None MANAGER OFFICE History: Reports: Musculoskeletal History: Reports: None Neurological History: Reports: None Psychiatric History: Reports: None Endocrine/Metabolic History: Reports: None Hematologic History: Reports: None Dermatologic History: Reports: None - Infectious Disease History Infectious Disease History: Reports: None Social & Family History - Family History Family Medical History: Noncontributory Cardiac: Reports: Heart Murmur - Tobacco Use Smoking Status *Q: Former Smoker Used Tobacco, but Quit: Yes Month Tobacco Last Used: 10months ago Second Hand Smoke Exposure: Yes - Recreational Drug Use Recreational Drug Use: No ED ROS GENERAL - Review of Systems Review Of Systems: See Below (See history of present illness) ED EXAM, SKIN/RASH Exam: See Below (See history of present illness) Course - Vital Signs Last Recorded V/S: Last Vital Signs Temp 36.3 C 02/06/17 11:47 Pulse 100 02/06/17 11:47 Resp 16 02/06/17 11:47 BP 130/85 02/06/17 11:47 Pulse Ox 99 02/06/17 11:47 Departure - Departure Time of Disposition: 12:14 Disposition: Home, Self-Care 01 Condition: Good Clinical Impression: Pruritic rash, Allergic drug rash - Discharge Information Referrals: PCP,None [Primary Care Provider] - Additional Instructions: The following information is given to patients seen in the emergency department who are being discharged to home. This information is to outline your options for follow-up care. We provide all patients seen in our emergency department with a follow-up referral. The need for follow-up, as well as the timing and circumstances, are variable depending upon the specifics of your emergency department visit. If you don't have a primary care physician on staff, we will provide you with a referral. We always advise you to contact your personal physician following an emergency department visit to inform them of the circumstance of the visit and for follow-up with them and/or the need for any referrals to a consulting specialist. The emergency department will also refer you to a specialist when appropriate. This referral assures that you have the opportunity for follow-up care with a specialist. All of these measure are taken in an effort to provide you with optimal care, which includes your follow-up. Under all circumstances we always encourage you to contact your private physician who remains a resource for coordinating your care. When calling for follow-up care, please make the office aware that this follow-up is from your recent emergency room visit. If for any reason you are refused follow-up, please contact the [facility] Emergency Department at and asked to speak to the emergency department charge nurse. Take medication as directed Use caution when taking medication as both can make the baby sleepy Follow-up with primary care provider in 2-3 days Return to ED as needed as discussed
[2017-02-06 12:26] VITALS: BP 116/82
== END 2017-02-06 12:20 | disposition home or self-care (01) ==
LOC: MW.ED 11:32
DX: O89.5 Other complications of spinal and epidural anesthesia during the puerperium (principal); L27.1 Localized skin eruption due to drugs and medicaments taken internally; Z87.891 Personal history of nicotine dependence
CPT/HCPCS: 99282

== ENCOUNTER 2017-07-06 14:09 | Emergency (ER) | payer BC ==
--- NOTE | 2017-07-06 14:21 | EDM.PDOC ---
ED HPI GENERAL MEDICAL PROBLEM - General Chief Complaint: Headache Stated Complaint: MIGRAINE Time Seen by Provider: 07/06/17 14:21 Source of Information: Reports: Patient History Limitations: Reports: No Limitations - History of Present Illness INITIAL COMMENTS - FREE TEXT/NARRATIVE: HISTORY AND PHYSICAL: []21-year-old female presenting with headache for the last 2-1/2 weeks History of Present Illness: []Patient states that has not gone away she's tried all [id number] medications with no relief she's never had headaches in the past this is new. Denies having any trauma no head injuries she denies having any illnesses, colds fever or sore throat She has her baby with her that is 5 months old No personal history of headaches She does state that the light hurts her eyes Noises hurt Most often from mid forehead extending bilaterally but always mid forehead across the right eye No auras were noted Review of Systems: As per history of present illness and below otherwise all systems reviewed and negative. Past medical history: As per history of present illness and as reviewed below otherwise noncontributory. Surgical history: As per history of present illness and as reviewed below otherwise noncontributory. Social history: No reported history of drug or alcohol abuse. Family history: As per history of present illness and as reviewed below otherwise noncontributory. Physical exam: Alert and oriented female smiling when she is answering questions. Shortness breath noted. She is nontoxic in appearance. HEENT: Atraumatic, normocehpalic, pupils reactive, negative for conjunctival pallor or scleral icterus, mucous membranes moist, throat clear, neck supple, nontender, trachea midline. Tympanic membranes without erythema. No cervical adenopathy. Lungs: Clear to auscultation, breath sounds equal bilaterally, chest non tender. Heart: S1S2, regular, negative for clicks, rubs, or JVD. Abdomen: Soft, nondistended, nontender. Negative for masses or hepatossplenmegaly. Negative for costovertebral tenderness. Pelvis: Stable nontender. Genitourinary: Deferred. Rectal: Deferred Extremities: Atraumatic, negative for cords or calf pain. Neurovascular unremarkable. Neuro: Awake, alert, oriented. Cranial nerves II through XII unremarkable. Cerebellum unremarkable. Motor and sensory unremarkable throughout. Exam nonfocal. Grossly intact. Patient's lab work has shown no this time Head CT scan was negative for any lesions bleeds or irregularities Diagnostics: []Head CT Therapeutics: []Toradol IV Impression: []Migraine headache Plan: []Discharged to home Trial with Ativan 1 mg by mouth Benadryl 50 mg by mouth Compazine 10 mg po He may take these medications when you get home and have someone to watch her child's you may sleep uninterrupted This will help to break the cycle and hopefully headaches will go away Referral has been made for you to see a neurologist Dr. Rodriges Definitive disposition and diagnosis as appropriate pending reevaluation and review of above. Onset: Gradual Duration: Week(s): (2.5) Location: Reports: Head Quality: Reports: Ache, Throbbing Severity: Moderate Improves with: Reports: None Worsens with: Reports: None headache Pain Score (Numeric/FACES): 7 - Related Data Allergies Allergy/AdvReac Type Severity Reaction Status Date / Time No Known Allergies Allergy Verified 07/06/17 14:25 Home Meds: Home Meds Norgestimate-Ethinyl Estradiol [Sprintec 28 Day Tablet] 1 tab PO DAILY 07/06/17 [History] Past Medical History - Past Health History Medical/Surgical History: Denies Medical/Surgical History HEENT History: Reports: None Cardiovascular History: Reports: None Respiratory History: Reports: None Gastrointestinal History: Reports: None Genitourinary History: Reports: None 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 - Physical Exam Exam: See Below (See dictation) Course - Vital Signs Last Recorded V/S: Last Vital Signs Temp 36.4 C 07/06/17 14:24 Pulse 98 07/06/17 14:24 Resp 18 07/06/17 14:24 BP 141/78 H 07/06/17 14:24 Pulse Ox 96 07/06/17 14:24 - Orders/Labs/Meds Orders: Active Orders 24 hr Category Date Time Status HCG QUALITATIVE,URINE [URCHEM] Stat Lab 07/06/17 14:50 Ordered UA W/MICROSCOPIC [URIN] Stat Lab 07/06/17 14:50 Ordered Sodium Chloride 0.9% [Normal Saline] 1,000 ml Med 07/06/17 15:40 Ordered IV STAT Sodium Chloride 0.9% [Saline Flush] Med 07/06/17 14:34 Active 10 ml FLUSH ASDIRECTED PRN Sodium Chloride 0.9% [Saline Flush] Med 07/06/17 14:34 Active 2.5 ml FLUSH ASDIRECTED PRN Saline Lock Insert [OM.PC] Stat Oth 07/06/17 14:34 Ordered Medication Orders Sodium Chloride (Normal Saline) 1,000 mls @ 999 mls/hr IV STAT ONE Stop: 07/06/17 16:40 Sodium Chloride (Saline Flush) 10 ml FLUSH ASDIRECTED PRN PRN Reason: Keep Vein Open Sodium Chloride (Saline Flush) 2.5 ml FLUSH ASDIRECTED PRN PRN Reason: Keep Vein Open Labs: Laboratory Tests 07/06/17 07/06/17 07/06/17 Range/Units 14:20 14:20 14:50 WBC 9.12 (4.0-11.0) K/uL RBC 5.55 (4.30-5.90) M/uL Hgb 14.2 (12.0-16.0) g/dL Hct 43.3 (36.0-46.0) % MCV 78.0 L (80.0-98.0) fL MCH 25.6 L (27.0-32.0) pg MCHC 32.8 (31.0-37.0) g/dL RDW Std Deviation 45.8 (28.0-62.0) fl RDW Coeff of Jl 16 H (11.0-15.0) % Plt Count 247 (150-400) K/uL MPV 9.90 (7.40-12.00) fL Neut % (Auto) 64.8 (48.0-80.0) % Lymph % (Auto) 23.4 (16.0-40.0) % [place] % (Auto) 9.6 (0.0-15.0) % Eos % (Auto) 1.8 (0.0-7.0) % Baso % (Auto) 0.4 (0.0-1.5) % Neut # (Auto) 5.9 H (1.4-5.7) K/uL Lymph # (Auto) 2.1 (0.6-2.4) K/uL [place] # (Auto) 0.9 H (0.0-0.8) K/uL Eos # (Auto) 0.2 (0.0-0.7) K/uL Baso # (Auto) 0.0 (0.0-0.1) K/uL Nucleated RBC % 0.0 /100WBC Nucleated RBCs # 0 K/uL Sodium 141 (136-145) mmol/L Potassium 4.1 (3.5-5.1) mmol/L Chloride 107 (98-107) mmol/L Carbon Dioxide 23.6 (21.0-32.0) mmol/L BUN 10 (7.0-18.0) mg/dL Creatinine 0.8 (0.6-1.0) mg/dL Est Cr Clr Drug Dosing 86.50 mL/min Estimated GFR (MDRD) > 60.0 ml/min Glucose 86 (74-106) mg/dL Calcium 8.5 (8.5-10.1) mg/dL Total Bilirubin 0.4 (0.2-1.0) mg/dL AST 18 (15-37) IU/L ALT 30 (14-63) IU/L Alkaline Phosphatase 104 (46-116) U/L Total Protein 7.1 (6.4-8.2) g/dL Albumin 3.3 L (3.4-5.0) g/dL Globulin 3.8 H (2.0-3.5) g/dL Albumin/Globulin Ratio 0.9 L (1.3-2.8) Urine Color YELLOW Urine Appearance SLT CLOUDY Urine pH 6.0 (5.0-8.0) Ur Specific [place] 1.020 (1.001-1.035) Urine Protein NEGATIVE (NEGATIVE) mg/dL Urine Glucose (UA) NEGATIVE (NEGATIVE) mg/dL Urine Ketones NEGATIVE (NEGATIVE) mg/dL Urine Occult Blood NEGATIVE (NEGATIVE) Urine Nitrite NEGATIVE (NEGATIVE) Urine Bilirubin NEGATIVE (NEGATIVE) Urine Urobilinogen 0.2 (<2.0) EU/dL Ur Leukocyte Esterase TRACE (NEGATIVE) Urine RBC 0-2 (0-2/HPF) Urine WBC 3-6 (0-5/HPF) Ur Epithelial Cells MANY (NONE-FEW) Urine Bacteria 1+ H (NEGATIVE) Urine HCG, Qual (NEGATIVE) 07/06/17 Range/Units 14:50 WBC (4.0-11.0) K/uL RBC (4.30-5.90) M/uL Hgb (12.0-16.0) g/dL Hct (36.0-46.0) % MCV (80.0-98.0) fL MCH (27.0-32.0) pg MCHC (31.0-37.0) g/dL RDW Std Deviation (28.0-62.0) fl RDW Coeff of Jl (11.0-15.0) % Plt Count (150-400) K/uL MPV (7.40-12.00) fL Neut % (Auto) (48.0-80.0) % Lymph % (Auto) (16.0-40.0) % [place] % (Auto) (0.0-15.0) % Eos % (Auto) (0.0-7.0) % Baso % (Auto) (0.0-1.5) % Neut # (Auto) (1.4-5.7) K/uL Lymph # (Auto) (0.6-2.4) K/uL [place] # (Auto) (0.0-0.8) K/uL Eos # (Auto) (0.0-0.7) K/uL Baso # (Auto) (0.0-0.1) K/uL Nucleated RBC % /100WBC Nucleated RBCs # K/uL Sodium (136-145) mmol/L Potassium (3.5-5.1) mmol/L Chloride (98-107) mmol/L Carbon Dioxide (21.0-32.0) mmol/L BUN (7.0-18.0) mg/dL Creatinine (0.6-1.0) mg/dL Est Cr Clr Drug Dosing mL/min Estimated GFR (MDRD) ml/min Glucose (74-106) mg/dL Calcium (8.5-10.1) mg/dL Total Bilirubin (0.2-1.0) mg/dL AST (15-37) IU/L ALT (14-63) IU/L Alkaline Phosphatase (46-116) U/L Total Protein (6.4-8.2) g/dL Albumin (3.4-5.0) g/dL Globulin (2.0-3.5) g/dL Albumin/Globulin Ratio (1.3-2.8) Urine Color Urine Appearance Urine pH (5.0-8.0) Ur Specific [place] (1.001-1.035) Urine Protein (NEGATIVE) mg/dL Urine Glucose (UA) (NEGATIVE) mg/dL Urine Ketones (NEGATIVE) mg/dL Urine Occult Blood (NEGATIVE) Urine Nitrite (NEGATIVE) Urine Bilirubin (NEGATIVE) Urine Urobilinogen (<2.0) EU/dL Ur Leukocyte Esterase (NEGATIVE) Urine RBC (0-2/HPF) Urine WBC (0-5/HPF) Ur Epithelial Cells (NONE-FEW) Urine Bacteria (NEGATIVE) Urine HCG, Qual NEGATIVE (NEGATIVE) Meds: Medications Generic Name Dose Route Start Last Admin Trade Name Freq PRN Reason Stop Dose Admin Sodium Chloride 1,000 mls @ 999 mls/hr 07/06/17 15:40 Normal Saline IV 07/06/17 16:40 STAT ONE Sodium Chloride 10 ml 07/06/17 14:34 Saline Flush FLUSH ASDIRECTED PRN Keep Vein Open Sodium Chloride 2.5 ml 07/06/17 14:34 Saline Flush FLUSH ASDIRECTED PRN Keep Vein Open Discontinued Medications Generic Name Dose Route Start Last Admin Trade Name Freq PRN Reason Stop Dose Admin Diphenhydramine HCl 25 mg 07/06/17 15:40 Benadryl IVPUSH 07/06/17 15:41 ONETIME ONE Ketorolac Tromethamine 30 mg 07/06/17 15:40 07/06/17 15:53 Toradol IVPUSH 07/06/17 15:41 30 mg ONETIME ONE Administration Departure - Departure Time of Disposition: 16:00 Disposition: Home, Self-Care 01 Condition: Good Clinical Impression: Migraine - Discharge Information Instructions: Migraine Headache, [id number] Referrals: PCP,None [Primary Care Provider] - Phyllis Rodriges MD [Physician] - Forms: ED Department Discharge Additional Instructions: The following information is given to patients seen in the emergency department who are being discharged to home. This information is to outline your options for follow-up care. We provide all patients seen in our emergency department with a follow-up referral. The need for follow-up, as well as the timing and circumstances, are variable depending upon the specifics of your emergency department visit. If you don't have a primary care physician on staff, we will provide you with a referral. We always advise you to contact your personal physician following an emergency department visit to inform them of the circumstance of the visit and for follow-up with them and/or the need for any referrals to a consulting specialist. The emergency department will also refer you to a specialist when appropriate. This referral assures that you have the opportunity for followup care with a specialist. All of these measure are taken in an effort to provide you with optimal care, which includes your followup. Under all circumstances we always encourage you to contact your private physician who remains a resource for coordinating your care. When calling for followup care, please make the office aware that this follow-up is from your recent emergency room visit. If for any reason you are refused follow-up, please contact the [facility] emergency department at and asked to speak to the emergency department charge nurse. Follow-up with Dr. Phyllis Rodriges neurologist for your migraine headaches CT Head scan was normal For home use today be to break this cycle as this is been such a long time 2.5 weeks occasions to take at home are Compazine 10 mg by mouth Benadryl 50 mg by mouth Ativan 1 mg by mouth Worsening of symptoms please return to ER for further evaluation - My Orders Last 24 Hours: My Active Orders 07/06/17 14:34 Sodium Chloride 0.9% [Saline Flush] 10 ml FLUSH ASDIRECTED PRN Sodium Chloride 0.9% [Saline Flush] 2.5 ml FLUSH ASDIRECTED PRN Saline Lock Insert [OM.PC] Stat 07/06/17 14:50 HCG QUALITATIVE,URINE [URCHEM] Stat UA W/MICROSCOPIC [URIN] Stat 07/06/17 15:40 Sodium Chloride 0.9% [Normal Saline] 1,000 ml IV STAT - Assessment/Plan Last 24 Hours: My Active Orders 07/06/17 14:34 Sodium Chloride 0.9% [Saline Flush] 10 ml FLUSH ASDIRECTED PRN Sodium Chloride 0.9% [Saline Flush] 2.5 ml FLUSH ASDIRECTED PRN Saline Lock Insert [OM.PC] Stat 07/06/17 14:50 HCG QUALITATIVE,URINE [URCHEM] Stat UA W/MICROSCOPIC [URIN] Stat 07/06/17 15:40 Sodium Chloride 0.9% [Normal Saline] 1,000 ml IV STAT
[2017-07-06] MEDS ORDERED: Sodium Chloride 0.9% 10 ML Syringe FLUSH PRN (14:34)
[2017-07-06] MEDS ORDERED: Sodium Chloride 0.9% 2.5 ML Syringe FLUSH PRN (14:34)
[2017-07-06 15:19] LABS: CHLORIDE,CL 107 mmol/L (98-107); SODIUM,NA 141 mmol/L (136-145)
--- NOTE | 2017-07-06 15:38 | CT ---
CT brain scan Clinical history: Headache Comparison: None Findings: The cerebral ventricles and sulci are normal. There is no mass edema hemorrhage or space-oc cupying abnormality. Bone window images demonstrate an incidental mucosal retention cyst in the right maxillary sinus and normally aerated mastoids. No calvarial abnormality is identified. Impression: Normal CT brain scan. Incidental small mucous retention cyst in the right maxillary sinus of doubtful significance
[2017-07-06] MEDS: Ketorolac 30 MG/ML SDV IVPUSH ONE (15:53)
[2017-07-06] MEDS: Sodium Chloride 0.9% 1,000 ML IV ONE (16:02)
[2017-07-06] MEDS: LORazepam 1 MG Tab PO SCH (16:15)
[2017-07-06] MEDS: diphenhydrAMINE 50 MG Cap PO ONE (16:15)
[2017-07-06] MEDS: Prochlorperazine 10 MG Tab PO ONE (16:15)
[2017-07-06] MEDS: LORazepam 1 MG Tab ONE (16:22)
[2017-07-06] MEDS: diphenhydrAMINE 50 MG/ML SDV IVPUSH ONE (16:22)
[2017-07-06 16:30] VITALS: BP 116/80
== END 2017-07-06 16:20 | disposition home or self-care (01) ==
LOC: MW.ED 14:09
DX: G43.909 Migraine, unspecified, not intractable, without status migrainosus (principal); Z79.899 Other long term (current) drug therapy
CPT/HCPCS: 36415; 70450; 80053; 81001; 81025; 85025; 96374; 99284; A9270; J1885; 99283

== ENCOUNTER 2019-01-29 05:09 | Inpatient (IN) | payer BC ==
[2019-01-29] MEDS ORDERED: ceFAZolin 2 GM in Premix Bag 1 BAG IV ONE (05:16)
[2019-01-29] MEDS ORDERED: Sodium Chloride 0.9% 10 ML SDV IV PRN (05:16)
[2019-01-29] MEDS ORDERED: Sodium Chloride 0.9% 2.5 ML Syringe FLUSH PRN (05:16)
[2019-01-29] MEDS ORDERED: Sodium Chloride 0.9% 10 ML Syringe FLUSH PRN (05:16)
[2019-01-29] MEDS ORDERED: Citric Acid/Sodium Citrate Solution 30 ML Cup PO ONE (05:16)
[2019-01-29] MEDS ORDERED: Oxytocin/0.9 % Sodium Chloride 30 UNIT/500 ML BAG IV SCH (05:30)
[2019-01-29] MEDS: Lactated Ringers 1,000 ML IV SCH ×4 (06:00→20:17)
--- NOTE | 2019-01-29 06:30 | PCM.PREANE ---
Preanesthetic Assessment - Anesthesia/Transfusion/Family Hx Anesthesia History: Prior Anesthesia Without Reaction Family History of Anesthesia Reaction: No Transfusion History: No Prior Transfusion(s) Intubation History: Unknown - Review of Systems General: No Symptoms Pulmonary: No Symptoms Cardiovascular: No Symptoms Gastrointestinal: No Symptoms Neurological: No Symptoms Other: Reports: None - Physical Assessment Height: 5 ft 2 in Weight: 106.594 kg ASA Class: 2 Mental Status: Alert & Oriented x3 Airway Class: Mallampati = 2 Dentition: Reports: Normal Dentition Thyro-Mental Finger Breadths: 3 Mouth Opening Finger Breadths: 3 ROM/Head Extension: Full Lungs: Clear to Auscultation, Normal Respiratory Effort Cardiovascular: Regular Rate, Regular Rhythm - Lab Values: Laboratory Last Values WBC 8.66 K/uL (4.0-11.0) 01/29/19 05:40 RBC 4.50 M/uL (4.30-5.90) 01/29/19 05:40 Hgb 12.9 g/dL (12.0-16.0) 01/29/19 05:40 Hct 38.9 % (36.0-46.0) 01/29/19 05:40 MCV 86.4 fL (80.0-98.0) 01/29/19 05:40 MCH 28.7 pg (27.0-32.0) 01/29/19 05:40 MCHC 33.2 g/dL (31.0-37.0) 01/29/19 05:40 RDW Std Deviation 42.1 fl (28.0-62.0) 01/29/19 05:40 RDW Coeff of Jl 13 % (11.0-15.0) 01/29/19 05:40 Plt Count 152 K/uL (150-400) 01/29/19 05:40 MPV 10.50 fL (7.40-12.00) 01/29/19 05:40 Nucleated RBC % 0.0 /100WBC 01/29/19 05:40 Nucleated RBCs # 0 K/uL 01/29/19 05:40 - Allergies Allergies/Adverse Reactions: Allergies Allergy/AdvReac Type Severity Reaction Status Date / Time No Known Allergies Allergy Verified 01/25/19 10:40 - Blood Blood Available: No - Anesthesia Plan Pre-Op Medication Ordered: None - Acknowledgements Anesthesia Type Planned: Spinal (general anesthesia back-up plan) Pt an Appropriate Candidate for the Planned Anesthesia: Yes Alternatives and Risks of Anesthesia Discussed w Pt/Guardian: Yes Pt/Guardian Understands and Agrees with Anesthesia Plan: Yes PreAnesthesia Questionnaire - Past Health History Medical/Surgical History: Denies Medical/Surgical History HEENT History: Reports: Other (See Below) Other HEENT History: wears glasses/contacts Cardiovascular History: Reports: None Respiratory History: Reports: None Gastrointestinal History: Reports: Other (See Below) Other Gastrointestinal History: occasional heartburn with Genitourinary History: Reports: UTI, Recurrent 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: Musculoskeletal History: Reports: Back Pain, Chronic Other Musculoskeletal History: scoliosis Neurological History: Reports: None Psychiatric History: Reports: None Endocrine/Metabolic History: Reports: Obesity/BMI 30+ Hematologic History: Reports: None Immunologic History: Reports: None Oncologic (Cancer) History: Reports: None Dermatologic History: Reports: None - Infectious Disease History Infectious Disease History: Reports: None - Past Surgical History Head Surgeries/Procedures: Reports: None HEENT Surgical History: Reports: None Cardiovascular Surgical History: Reports: None GI Surgical History: Reports: Hernia, Abdominal Other GI Surgeries/Procedures: umbilical hernia repair Female Surgical History: Reports: Section Endocrine Surgical History: Reports: None Neurological Surgical History: Reports: None, Scoliosis Musculoskeletal Surgical History: Reports: None Oncologic Surgical History: Reports: None - SUBSTANCE USE Smoking Status *Q: Former Smoker Tobacco Use Within Last Twelve Months: Cigarettes - HOME MEDS Home Medications: Home Meds Vit #76/Iron,Carb/Fa [Pnv 29-1 Tablet] 1 tab PO DAILY 01/03/19 [History ] - CURRENT (IN HOUSE) MEDS Current Meds: Current Medications Lactated Ringer's (Ringers, Lactated) 1,000 mls @ 999 mls/hr IV BOLUS GLORIA Last Admin: 01/29/19 06:00 Dose: 999 mls/hr Oxytocin/Sodium Chloride (Oxytocin 30 Unit/500 Ml-Ns) 30 unit in 500 mls @ 250 mls/hr IV TITRATE GLORIA Sodium Chloride (Saline Flush) 10 ml FLUSH ASDIRECTED PRN PRN Reason: Keep Vein Open Sodium Chloride (Saline Flush) 2.5 ml FLUSH ASDIRECTED PRN PRN Reason: Keep Vein Open Sodium Chloride (Normal Saline) 10 ml IV ASDIRECTED PRN PRN Reason: IV Use Discontinued Medications Citric Acid/Sodium Citrate (Bicitra Solution) 30 ml PO ONETIME ONE Stop: 01/29/19 05:17 Cefazolin Sodium/Dextrose 2 gm (/ Premix) 50 mls @ 100 mls/hr IV ONETIME ONE Stop: 01/29/19 05:45
[2019-01-29] MEDS ORDERED: Morphine PF 10 MG/10 ML SDV ONE (07:18)
[2019-01-29] MEDS ORDERED: Propofol 200 MG/20 ML SDV ONE (07:20)
[2019-01-29] MEDS ORDERED: Glycopyrrolate 0.2 MG/ML SDV ONE (07:26)
[2019-01-29] MEDS ORDERED: ePHEDrine 50 MG/ML SDV ONE (07:26)
[2019-01-29] MEDS ORDERED: Sodium Chloride 0.9% 20 ML ONE (07:26)
[2019-01-29] MEDS ORDERED: Phenylephrine/Normal Saline 100 MCG/ML 10 ML Syringe ONE (07:26)
[2019-01-29] MEDS ORDERED: Oxytocin 10 Units/1 ML SDV ONE (07:26)
[2019-01-29] MEDS ORDERED: Octyl 2-Cyanoacrylate 1 Tube ONE (07:32)
[2019-01-29] MEDS ORDERED: Citric Acid/Sodium Citrate Solution 30 ML Cup ONE (07:36)
[2019-01-29] MEDS ORDERED: fentaNYL 100 MCG/2 ML SDV ONE (08:49)
[2019-01-29] MEDS ORDERED: Oxytocin 10 Units/1 ML SDV IM PRN (09:53)
[2019-01-29] MEDS ORDERED: Ibuprofen 800 MG Tab PO PRN (09:53)
[2019-01-29] MEDS ORDERED: Lanolin 100% Cream 7 GM Tube TOP PRN (09:53)
[2019-01-29] MEDS ORDERED: Misoprostol 200 MCG Tab RECTAL PRN (09:53)
[2019-01-29] MEDS ORDERED: Ondansetron 4 MG/2 ML SDV IVPUSH PRN (09:53)
[2019-01-29] MEDS ORDERED: Methylergonovine 0.2 MG/1 ML Amp IM PRN (09:53)
[2019-01-29] MEDS ORDERED: Acetaminophen/oxyCODONE 325-5 MG Tab PO PRN ×2 (09:53)
[2019-01-29] MEDS ORDERED: Bisacodyl 10 MG Supp RECTAL PRN (09:53)
[2019-01-29] MEDS ORDERED: Tranexamic Acid 1,000 MG in Sodium Chloride 0.9% 100 ML IV PRN (09:53)
[2019-01-29] MEDS ORDERED: Oxytocin/Lactated Ringers 30 UNIT/500 ML BAG IV SCH (10:00)
[2019-01-29] MEDS: Ketorolac 30 MG/ML SDV IVPUSH SCH ×3 (10:11→22:30)
--- NOTE | 2019-01-29 10:22 | PCM.POSTAN ---
POST ANESTHESIA ASSESSMENT - MENTAL STATUS Mental Status: Alert - VITAL SIGNS Vital Signs: Last Vital Signs Temp 36.5 C 01/29/19 09:41 Pulse 82 01/29/19 10:15 Resp 14 01/29/19 10:15 BP 118/67 01/29/19 10:15 Pulse Ox 94 L 01/29/19 10:15 - RESPIRATORY Respiratory Status: Respiratory Rate WNL - CARDIOVASCULAR CV Status: Pulse Rate WNL - GASTROINTESTINAL GI Status: No Symptoms - POST OP HYDRATION Hydration Status: Adequate & Stable
[2019-01-29] MEDS ORDERED: Albuterol 0.083% 2.5 MG/3 ML Neb Soln NEB PRN (10:41)
[2019-01-29] MEDS ORDERED: fentaNYL 100 MCG/2 ML SDV IVPUSH PRN (10:41)
[2019-01-29] MEDS ORDERED: EPINEPHrine 1:10,000 1 MG/10 ML Syringe IVPUSH PRN (10:41)
[2019-01-29] MEDS ORDERED: Atropine 0.1 MG/ML 10 ML Syringe IVPUSH PRN ×2 (10:41)
[2019-01-29] MEDS ORDERED: 50% Dextrose in Water 50 ML Syringe IVPUSH PRN (10:41)
[2019-01-29] MEDS ORDERED: Naloxone 0.4 MG/ML Syringe IVPUSH PRN (10:41)
[2019-01-29] MEDS: diphenhydrAMINE 50 MG/ML SDV IVPUSH PRN ×2 (11:20→18:16)
[2019-01-29] MEDS: Docusate Sodium 100 MG Cap PO SCH (20:16)
[2019-01-30] MEDS: Ketorolac 30 MG/ML SDV IVPUSH SCH ×2 (04:22→09:42)
[2019-01-30 07:57] VITALS: BP 116/60
--- NOTE | 2019-01-30 09:15 | PCM.PNPP ---
- General Info Date of Service: 01/30/19 Subjective Update: 23yo P2 s/p repeat POD1 she is ambulating , voiding and tolerating regular diet with spontaneous pneuomthorax and is being transferred to [place] , she has bilateral chest tubes Functional Status: Reports: Pain Controlled, Tolerating Diet, Ambulating, Urinating - Review of Systems General: Reports: No Symptoms HEENT: Reports: No Symptoms Pulmonary: Reports: No Symptoms Cardiovascular: Reports: No Symptoms Gastrointestinal: Reports: No Symptoms Genitourinary: Reports: No Symptoms Musculoskeletal: Reports: No Symptoms Skin: Reports: No Symptoms Neurological: Reports: No Symptoms Psychiatric: Reports: No Symptoms - General Info Date of Service: 01/30/19 - Patient Data Vital Signs - Most Recent: Last Vital Signs Temp 36.5 C 01/30/19 07:30 Pulse 107 H 01/30/19 07:30 Resp 16 01/30/19 07:30 BP 116/60 01/30/19 07:30 Pulse Ox 97 01/30/19 07:30 Weight - Most Recent: 106.594 kg I&O - Last 24 Hours: Intake & Output 01/29/19 01/30/19 01/30/19 22:59 06:59 14:59 Output Total 150 800 Balance -150 -800 Lab Results - Last 24 Hours: Laboratory Results - last 24 hr 01/30/19 Range/Units 05:53 Hgb 9.2 L (12.0-16.0) g/dL Hct 27.7 L (36.0-46.0) % Med Orders - Current: Current Medications Albuterol (Proventil Neb Soln) 2.5 mg NEB ONETIME PRN PRN Reason: Wheezing Atropine Sulfate (Atropine 0.1 Mg/Ml) 1 mg IVPUSH ASDIRECTED PRN PRN Reason: Hypo-Perfusion Bisacodyl (Dulcolax) 10 mg RECTAL ONETIME PRN PRN Reason: Constipation Dextrose/Water (Dextrose 50% In Water) 50 ml IVPUSH ASDIRECTED PRN PRN Reason: Hypoglycemia Diphenhydramine HCl (Benadryl) 25 mg IVPUSH Q6H PRN PRN Reason: Itching or Nausea Last Admin: 01/29/19 18:16 Dose: 25 mg Docusate Sodium (Colace) 100 mg PO BID GLORIA Last Admin: 01/29/19 20:16 Dose: 100 mg Emollient Ointment (Lansinoh Hpa) 0 gm TOP ASDIRECTED PRN PRN Reason: Sore Nipples Epinephrine HCl (Epinephrine 1:10,000) 1 mg IVPUSH ASDIRECTED PRN PRN Reason: ACLS Guidelines Fentanyl (Sublimaze) 50 mcg IVPUSH Q5M PRN PRN Reason: Pain Lactated Ringer's (Ringers, Lactated) 1,000 mls @ 999 mls/hr IV BOLUS [facility] Last Admin: 01/29/19 07:05 Dose: 999 mls/hr Oxytocin/Sodium Chloride (Oxytocin 30 Unit/500 Ml-Ns) 30 unit in 500 mls @ 250 mls/hr IV TITRATE GLORIA Lactated Ringer's (Ringers, Lactated) 1,000 mls @ 125 mls/hr IV ASDIRECTED [facility] Last Admin: 01/29/19 20:17 Dose: 125 mls/hr Oxytocin/Lactated Ringer's (Pitocin In Lr 30 Units/500 Ml) 30 unit in 500 mls @ 500 mls/hr IV TITRATE [facility]; Protocol Tranexamic Acid 1,000 mg/ (Sodium Chloride) 110 mls @ 660 mls/hr IV ONETIME PRN PRN Reason: Bleeding Ibuprofen (Motrin) 800 mg PO Q8H PRN PRN Reason: mild pain or fever Ketorolac Tromethamine (Toradol) 30 mg IVPUSH Q6H [facility] Stop: 01/30/19 10:01 Last Admin: 01/30/19 04:22 Dose: 30 mg Methylergonovine Maleate (Methergine) 0.2 mg IM ONETIME PRN PRN Reason: Excessive Vaginal Bleeding Misoprostol (Cytotec) 1,000 mcg RECTAL ONETIME PRN PRN Reason: excessive bleeding Naloxone HCl (Narcan) 0.1 mg IVPUSH ASDIRECTED PRN PRN Reason: Respiratory Depression Ondansetron HCl (Zofran) 4 mg IVPUSH Q4H PRN PRN Reason: Nausea/Vomiting Oxycodone/Acetaminophen (Percocet 325-5 Mg) 1 tab PO Q4H PRN PRN Reason: Pain (moderate 4-6) Oxycodone/Acetaminophen (Percocet 325-5 Mg) 2 tab PO Q4H PRN PRN Reason: Pain (moderate 4-6) Oxytocin (Pitocin) 10 unit IM ASDIRECTED PRN PRN Reason: Excessive Vaginal Bleeding Sodium Chloride (Saline Flush) 10 ml FLUSH ASDIRECTED PRN PRN Reason: Keep Vein Open Sodium Chloride (Saline Flush) 2.5 ml FLUSH ASDIRECTED PRN PRN Reason: Keep Vein Open Sodium Chloride (Normal Saline) 10 ml IV ASDIRECTED PRN PRN Reason: IV Use Discontinued Medications Atropine Sulfate (Atropine 0.1 Mg/Ml) 0.5 mg IVPUSH ASDIRECTED PRN PRN Reason: Hypo-perfusion Stop: 01/29/19 12:41 Citric Acid/Sodium Citrate (Bicitra Solution) 30 ml PO ONETIME ONE Stop: 01/29/19 05:17 Last Admin: 01/29/19 07:38 Dose: 30 ml Citric Acid/Sodium Citrate (Bicitra Solution) Confirm Administered Dose 30 ml .ROUTE .STK-MED ONE Stop: 01/29/19 07:37 Last Admin: 01/29/19 11:05 Dose: Not Given Ephedrine Sulfate (Ephedrine Sulfate) Confirm Administered Dose 50 mg .ROUTE .STK-MED ONE Stop: 01/29/19 07:27 Fentanyl (Sublimaze) Confirm Administered Dose 100 mcg .ROUTE .STK-MED ONE Stop: 01/29/19 08:50 Glycopyrrolate (Robinul) Confirm Administered Dose 0.4 mg .ROUTE .STK-MED ONE Stop: 01/29/19 07:27 Cefazolin Sodium/Dextrose 2 gm (/ Premix) 50 mls @ 100 mls/hr IV ONETIME ONE Stop: 01/29/19 05:45 Last Admin: 01/29/19 07:35 Dose: 100 mls/hr Sodium Chloride (Normal Saline) Confirm Administered Dose 20 mls @ as directed .ROUTE .STK-MED ONE Stop: 01/29/19 07:27 Morphine Sulfate (Duramorph Pf) Confirm Administered Dose 10 mg .ROUTE .STK-MED ONE Stop: 01/29/19 07:19 Octyl Cyanoacrylate (Dermabond Advance) Confirm Administered Dose 1 applic .ROUTE .STK-MED ONE Stop: 01/29/19 07:33 Oxytocin (Pitocin) Confirm Administered Dose 20 unit .ROUTE .STK-MED ONE Stop: 01/29/19 07:27 Phenylephrine HCl (Phenylephrine In Ns 100 Mcg/Ml) Confirm Administered Dose 1 mg .ROUTE .STK-MED ONE Stop: 01/29/19 07:27 Propofol (Diprivan 20 Ml) Confirm Administered Dose 200 mg .ROUTE .STK-MED ONE Stop: 01/29/19 07:21 - Interaction Support Person: - Recovery Exam Fundal Tone: Firm Fundal Level: At Umbilicus Fundal Placement: Midline Lochia Amount: Small Lochia Color: Rubra/Red Perineum Description: Intact, Minimal Bruising/Swelling Episiotomy/Laceration: None Bladder Status: Indwelling Catheter in Place Urinary Elimination: Other (see below) Other Urinary Elimination, : due to void - Exam General: Alert, Oriented HEENT: Pupils Equal Neck: Supple Lungs: Clear to Auscultation Cardiovascular: Regular Rate, Regular Rhythm GI/Abdominal Exam: Normal Bowel Sounds Extremities: Normal Inspection Wound/Incisions: Dressing Dry and Intact Neurological: No New Focal Deficit Psy/Mental Status: Alert - Problem List & Annotations (1) delivery delivered SNOMED Code(s): 164190513 Code(s): O82 - ENCOUNTER FOR DELIVERY WITHOUT INDICATION Status: Acute Current Visit: Yes - Problem List Review Problem List Initiated/Reviewed/Updated: Yes - My Orders Last 24 Hours: My Active Orders 01/29/19 09:50 Notify Provider Vital Signs [RC] ASDIRECTED 01/29/19 09:53 Communication Order [RC] PER UNIT ROUTINE Communication Order [RC] Per Unit Routine May Shower [RC] ASDIRECTED RT Incentive Spirometry [RC] Q2HWA Vital Signs [RC] Q1H Acetaminophen/oxyCODONE [Percocet 325-5 MG] 1 tab PO Q4H PRN Acetaminophen/oxyCODONE [Percocet 325-5 MG] 2 tab PO Q4H PRN Ibuprofen [Motrin] 800 mg PO Q8H PRN Lanolin [Lansinoh HPA] See Dose Instructions TOP ASDIRECTED PRN Methylergonovine [Methergine] 0.2 mg IM ONETIME PRN Ondansetron [Zofran] 4 mg IVPUSH Q4H PRN Oxytocin [Pitocin] 10 unit IM ASDIRECTED PRN Tranexamic Acid [Cyklokapron] 1,000 mg Sodium Chloride 0.9% [Normal Saline] 100 ml IV ONETIME bisacodyL [Dulcolax] 10 mg RECTAL ONETIME PRN diphenhydrAMINE [Benadryl] 25 mg IVPUSH Q6H PRN miSOPROStoL [Cytotec] 1,000 mcg RECTAL ONETIME PRN Assess Lochia [WOMSER] Per Unit Routine Assess Uterine Involution [WOMSER] Per Unit Routine Breast Pump [WOMSER] Per Unit Routine Peripheral IV Discontinue [OM.PC] Routine Sequential Compression Device [OM.PC] Per Unit Routine 01/29/19 09:55 Antiembolic Devices [RC] PER UNIT ROUTINE Notify Provider Intake and Out [RC] ASDIRECTED 01/29/19 10:00 Ketorolac [Toradol] 30 mg IVPUSH Q6H Lactated Ringers [Ringers, Lactated] 1,000 ml IV ASDIRECTED Oxytocin/Lactated Ringers [Pitocin in LR 30 Units/500 ML] 30 unit in 500 ml IV TITRATE 01/29/19 21:00 Docusate Sodium [Colace] 100 mg PO BID - Assessment Assessment:: 23yo P2 s/p repeat POD1 she is ambulating , voiding and tolerating regular diet [place] with spontaneous pneuomthorax and is being transferred to [place] , she has bilateral chest tubes - Plan Plan:: Encourage pumping for will discharge home so she can be with in [place] Aneamia precautions Encourage iron supplement
[2019-01-30 09:29] VITALS: PULSE 103
[2019-01-30] MEDS: Docusate Sodium 100 MG Cap PO SCH (09:41)
--- NOTE | 2019-01-30 10:18 | OR ---
SURGEON: GIOVANNY BLACK DATE OF PROCEDURE: 01/29/2019 PREOPERATIVE DIAGNOSIS: A 23-year-old G2, P 1-0-0-1, at 39 weeks for repeat section. POSTOPERATIVE DIAGNOSIS: A 23-year-old G2, P 1-0-0-1, at 39 weeks for repeat section. PROCEDURE: Repeat lower transverse section. ANESTHESIA: Spinal and general. IV FLUIDS: 3500. ESTIMATED BLOOD LOSS: 1100. URINE OUTPUT: 150. NOTES AND FINDING: A live female delivered at 836am. score was 9 and 9. Weight is 2350 g. DESCRIPTION OF PROCEDURE: The patient was taken to the operating room where spinal anesthesia was performed without difficulty. She was prepared and draped in the dorsal supine position with a leftward tilt. A Pfannenstiel skin incision was made in the point of the previous incision and carried down to the fascia with the Bovie. The fascia was incised and extended laterally. The rectus muscle was in the midline down to the level of the pubic symphysis. The peritoneum was entered in sharply with metzebaum. The Dontae retractor was placed to expose the lower uterine segment. A lower uterine segment incision was made, which was extended upwards and downwards to give us a good visualization of the head. The head was at the level of the incision. With fundal pressure, the head was delivered without difficulty. The cord was clamped, cut. was handed over to the awaiting dimmer board operator. The cord blood gases were obtained. Placenta was delivered by manual massage of the uterus. The patient was still in pain, so the patient was put in general anesthesia. The uterus was repaired in 2 layers, first layer with 0 Vicryl, second layer with 0 Monocryl. The peritoneum was approximated with 2-0 Vicryl. After the gutters were cleaned with moist laparotomy sponges, Dontae retractor was removed. The fascia was then approximated with 0 Vicryl. The skin was approximated with 3-0 Monocryl on a Bobo needle. All instrument and pad counts were correct x2. MARIAN / JORGE /[id number] MALCOLM
== END 2019-01-30 10:08 | disposition home or self-care (01) | DRG 540 ==
LOC: MW.OB 05:09
PROVIDERS: ADMIT Obstetrics & Gynecology; ATTEND Obstetrics & Gynecology
PROC: 10D00Z1 Extraction of Products of Conception, Low, Open Approach (ICD-10-PCS; principal; 2019-01-29)
DX: O34.211 Maternal care for low transverse scar from previous cesarean delivery (principal); Z87.891 Personal history of nicotine dependence; Z3A.39 39 weeks gestation of pregnancy; Z37.0 Single live birth
CPT/HCPCS: 36415; 59025; 85014; 85018; 85027; 86593; 86850; 86900; 86901; A9270-GY; J0690; J1200; J1885; J2270; J2370; J2590; J2704; J3010; J3490; J7120